=== PATIENT | female | born 1945 | race Two or more races ===

== ENCOUNTER 2021-10-06 09:00 | Outpatient (CLI) | payer OTHER | END 2021-10-06 23:59 | disposition home or self-care (01) | LOC: LAB 09:00 | PROVIDERS: ATTEND Specialist | DX: Z01.812 Encounter for preprocedural laboratory examination (principal); Z20.822 Contact with and (suspected) exposure to COVID-19 | CPT/HCPCS: C9803; U0003 ==

== ENCOUNTER 2021-10-13 07:02 | Inpatient (IN) | payer OTHER ==
[~2021-10-13] VITALS: Ht 157.5 cm; Wt 62.6 kg
[~2021-10-13 07:02] MED LIST: ANESTHESIA TRAY IN PYXIS 1 EA TRAY MC ONE; BUPIVACAINE 0.5 % PF 150 MG/30 ML VIAL ONE; POLYMYXIN B SULFATE 500,000 UNITS ONE
--- NOTE | 2021-10-13 07:15 | NUR ---
RN ADMITTING NOTES ADMITTED THIS 76 YEAR OLD FEMALE PATIENT VIA DIRECT ADMISSION. PATIENT IS FOR LEFT KNEE ARTHROPLASTY TODAY SCHEDULED. PATIENT IS ALERT AND ORIENTED X 4. ABLE TO MAKE NEEDS KNOWN. VITAL SIGNS WITHIN NORMAL LIMITS. KEPT PATIENT ON NPO. STARTED AN IV ACCESS ON PATIENT'S LEFT AC USING IV CATHETER G#20, PATENT AND FLUSHES WELL. CONSENT SECURED FOR THE PROCEDURE. NIO SKIN ISSUES IDENTIFIED. SPECIMEN FOR MRSA OBTAINED. SAFETY PRECAUTIONS IN PLACE: BED ON LOWEST LOCKED POSITION, SIDE RAILS UP X 2, CALL LIGHT WITHIN EASY RAILS. WILL CONTINUE TO MONITOR.
[2021-10-13 07:30] VITALS: BP 99/57
--- NOTE | 2021-10-13 09:00 | NUR ---
RN NOTES PATIENT WAS PICKED UP BY [facility]R STAFF. LEFT UNIT IN STABLE CONDITION.
[2021-10-13] MEDS ORDERED: PROPOFOL 20 ML IV ONE (09:11)
[2021-10-13] MEDS ORDERED: FENTANYL PF 100MCG/2ML AMPUL ONE (09:11)
[2021-10-13] MEDS ORDERED: TRANEXAMIC ACID 3,000 MG in SODIUM CHLORIDE IRRIG SOLUTION 70 ML IR ONE (09:30)
[2021-10-13] MEDS ORDERED: ONDANSETRON HCL/PF 4 MG/2 ML VIAL IV PRN (09:30)
[2021-10-13] MEDS ORDERED: MAGNESIUM HYDROXIDE 30 ML UDC PO PRN ×2 (09:30→11:30)
[2021-10-13] MEDS ORDERED: CLONIDINE HCL 0.1 MG TABLET PO PRN (09:30)
[2021-10-13] MEDS ORDERED: MAG HYDROX/AL HYDROX/SIMETH 30 ML UDC PO PRN ×2 (09:30→11:30)
[2021-10-13] MEDS ORDERED: oxyCODONE IR immediate release 5 MG PO PRN (09:30)
[2021-10-13] MEDS ORDERED: diphenhydrAMINE HCL 25 MG CAPSULE PO PRN (09:30)
[2021-10-13] MEDS ORDERED: MENTHOL/CETYLPYRD (CEPACOL) 1 LOZ LOZENGE PO PRN (09:30)
[2021-10-13] MEDS ORDERED: Z GUARD REMEDY 4 OZ OINT TP PRN (11:30)
[2021-10-13] MEDS ORDERED: ZOLPIDEM TARTRATE 5 MG TABLET PO PRN (11:30)
[2021-10-13] MEDS ORDERED: ACETAMINOPHEN 325 MG TABLET PO PRN (11:30)
[2021-10-13] MEDS ORDERED: ONDANSETRON HCL/PF 4 MG/2 ML VIAL IVP PRN (11:30)
[2021-10-13] MEDS ORDERED: IV LR 1000 ML 1,000 ML IV PRN (11:30)
--- NOTE | 2021-10-13 11:45 | NUR ---
RN NOTES RECEIVED PATIENT FROM RECOVERY ROOM VIA BED ACCOMPANIED BY CLARENCE GUAJARDO. PATIENT IS AWAKE, ALERT AND ORIENTED X 4. ABLE TO MAKE NEEDS KNOWN. VITAL SIGNS WITHIN NORMAL LIMITS. ONGOING IVF OF LRS 1 L X 100CC/HR, INFUSING WELL OVER PATIENT'S LEFT AC. NO S/SX OF INFILTRATION NOTED. WITH IMMOBILIZER ON LEFT LOWER EXTREMITY NOTES. NO COMPLAINTS OF PAIN AT THIS TIME. SAFETY PRECAUTIONS IN PLACE: BED ON LOWER LOCKED POSITION, SIDE RAILS UP X2. CALL LIGHT WITHIN EASY REACH. WILL CONTINUE TO MONITOR ACCORDINGLY.
[2021-10-13] MEDS: HYDROMORPHONE 1 MG/1 ML DISP.SYRIN IM/IV/SC PRN ×3 (12:02→21:23)
[2021-10-13] MEDS ORDERED: LEVE500T20 PO (13:58)
[2021-10-13] MEDS: DOCUSATE SODIUM 100 MG CAPSULE PO SCH (16:35)
--- NOTE | 2021-10-13 19:06 | NUR ---
RN CLOSING NOTES PATIENT IN BED, AWAKE, ALERT AND ORIENTED X 4. ABLE TO MAKE NEEDS KNOWN. VITAL SIGNS WITHIN NORMAL LIMITS. ONGOING IVF OF LRS 1 L X 100CC/HR, INFUSING WELL OVER PATIENT'S LEFT AC. NO S/SX OF INFILTRATION NOTED. WITH IMMOBILIZER ON LEFT LOWER EXTREMITY NOTES. NO COMPLAINTS OF PAIN AT THIS TIME. SAFETY PRECAUTIONS IN PLACE: BED ON LOWER LOCKED POSITION, SIDE RAILS UP X2. CALL LIGHT WITHIN EASY REACH. ENDORSED TO ONCOMING SHIFT FOR JACKELINE.
--- NOTE | 2021-10-13 19:30 | NUR ---
MS RN OPENING NOTE RECEIVED PATIENT IN BED. A/OX4. L. LEG NOTED TO BE WRAPPED ON FREDERIC WRAP AND WITH IMMOBILIZER. C/O PAIN-- WILL GIVE MEDICATION. IV LR RUNNING @100CC/HR. SAFETY IN PLACE. PATIENT ABLE TO MAKE KNOWN. WILL CONTINUE WITH PLAN OF CARE FOR PATIENT.
[2021-10-13 20:00] VITALS: BP 126/51
[2021-10-13] MEDS: FAMOTIDINE (20 MG) 20 MG TABLET PO SCH (21:24)
[2021-10-14] MEDS: HYDROMORPHONE 1 MG/1 ML DISP.SYRIN IM/IV/SC PRN ×4 (02:34→17:28)
--- NOTE | 2021-10-14 07:00 | NUR ---
RN OPENING NOTES RECEIVED PATIENT RESTING SEMI-FOWLERS IN BED. EASILY AROUSABLE, A/O X 4. VITAL SIGNS WITHIN NORMAL LIMITS. NO IV FLUIDS RUNNING AT THIS TIME DUE TO D/C OF IV INFUSION BY . L AC 20 G SALINE LOCK PATENT AND FLUSHES WELL WITH NO S/S OF INFECTION OR INFILTRATION. IMMOBILIZER ON LEFT LOWER EXTREMITY NOTED. NO COMPLAINTS OF PAIN AT THIS TIME. SAFETY PRECAUTIONS IN PLACE: BED ON LOWER LOCKED POSITION, SIDE RAILS UP X2. CALL LIGHT WITHIN EASY REACH. WILL CONTINUE TO MONITOR.
[2021-10-14 07:16] LABS: BASOPHILS % (AUTO) 0.3 % (0.0-2.0); EOSINOPHILS % (AUTO) 0.2 % (0.0-6.0); HEMATOCRIT 33 % (33-45); HEMOGLOBIN 11.1 g/dL (11.5-14.8); LYMPHOCYTES # (AUTO) 1.9 K/uL (0.8-4.8); LYMPHOCYTES % (AUTO) 19.2 % (20.0-44.0); MEAN CORPUSCULAR HGB CONC 33 g/dl (31.0-36.0); MEAN CORPUSCULAR VOLUME 96 fL (82-100); MONOCYTES # (AUTO) 1.1 K/uL (0.1-1.30); MONOCYTES % (AUTO) 11.1 % (2.0-12.0); NEUTROPHILS # (AUTO) 6.9 K/uL (1.8-8.9); NEUTROPHILS % (AUTO) 69.2 % (43.0-81.0); PLATELET COUNT (AUTO) 190 K/uL (150-450); RED BLOOD CELL COUNT(AUTO) 3.49 MIL/uL (4.0-5.2); WHITE BLOOD COUNT (AUTO) 9.9 K/uL (4.3-11.0)
[2021-10-14 07:44] LABS: CALCIUM, SERUM 8.4 mg/dL (8.5-10.1); CREATININE 0.7 mg/dL (0.6-1.3); POTASSIUM 4.5 mmol/L (3.5-5.1)
--- NOTE | 2021-10-14 07:58 | NUR ---
MS CLOSING RN NOTE REPORT GIVEN TO ZAY FOR CONTINUITY OF CARE. NO SIGNIFICANT CHANGE FROM LAST ENDORSEMENT.
[2021-10-14 08:37] VITALS: BP 129/52
[2021-10-14] MEDS: oxyCODONE IR immediate release 5 MG PO PRN (09:16)
[2021-10-14] MEDS ORDERED: LEVETIRACETAM (250 MG) 250 MG TABLET PO SCH (09:30)
[2021-10-14] MEDS: DOCUSATE SODIUM 100 MG CAPSULE PO SCH ×2 (09:32→16:25)
[2021-10-14] MEDS: FAMOTIDINE (20 MG) 20 MG TABLET PO SCH ×2 (09:32→21:35)
[2021-10-14] MEDS: ASPIRIN 325 MG TABLET PO SCH (09:32)
--- NOTE | 2021-10-14 10:24 | NUR ---
RN NOTES PT SEEN AND EVALUATED BY PHYSICAL THERAPIST MOE. PT WALKED WITH FWW WITH SBA PER MOE. PT NOW IN BED WITH CPM MACHINE ON LEFT LEG. WILL CONTINUE TO MONITOR. Addendum: 10/14/21 at 1255 by LUIS CARLOS BENITEZ RN CORRECTION: PT WALKED WITH FWW WITH CONTACT GUARD ASSIST
[2021-10-14 16:06] VITALS: BP 115/49
--- NOTE | 2021-10-14 17:28 | NUR ---
RN NOTES PATIENT IN 10/10 LEFT LEG PAIN AND REQUESTED PRESCRIBED DILAUDED IV PUSH. ADMINISTERED MEDICATION ORDERED.
--- NOTE | 2021-10-14 18:39 | NUR ---
MS RN CLOSING NOTES PATIENT IN BED, AWAKE, ALERT AND ORIENTED X 4. ABLE TO MAKE NEEDS KNOWN. VITAL SIGNS WITHIN NORMAL LIMITS. LEFT AC 20 G SALINE LOCK PATENT AND FLUSHING WELL. NO S/SX OF INFECTION OR INFILTRATION NOTED. IMMOBILIZER PRESENT ON LEFT LOWER EXTREMITY. NO COMPLAINTS OF PAIN AT THIS TIME. SAFETY PRECAUTIONS IN PLACE: BED ON LOWER LOCKED POSITION, SIDE RAILS UP X2. CALL LIGHT WITHIN EASY REACH. ENDORSED TO ONCOMING SHIFT FOR AJCKELINE.
[2021-10-14 20:00] VITALS: BP 150/65
--- NOTE | 2021-10-14 20:00 | NUR ---
RN NOTES ALERT/ORIENTED X4, STABLE ON ROOM AIR, S/P LEFT KNEE ARTHROPLASTY, PAIN MANAGED BY OXYCODONE IR, LEFT KNEE WITH FREDERIC WRAP, ICE APPLIED, BEDREST, REFUSED GETTING UP TO TOILET, REFUSED BEDPAN, PREFERS DIAPER INSTEAD. FALL PRECAUTION, KEPT SAFE, WILL CONTINUE TO MONITOR.
[2021-10-15] MEDS: oxyCODONE IR immediate release 5 MG PO PRN (03:30)
--- NOTE | 2021-10-15 06:23 | NUR ---
S/P LEFT KNEE TOTAL ARTHROPLASTY, LEFT KNEE WITH FREDERIC WRAP, DENIES NUMBNESS, WEAK PLANTARFLEXION AND DORSIFLEXION, REFUSED WALKING TO TOILET, PREFERS USING BED PAD TO VOID, CGA ASSIST, WBAT LLE, OXYCODONE IR 5-10 MG WITH ADEQUATE RELIEF, WEAN OFF DILAUDID IV, ENCOURAGE AMBULATION, FOR CASE MANAGEMENT CONSULT, WORKERS COMP.
--- NOTE | 2021-10-15 07:20 | NUR ---
RN OPENING NOTES RECEIVED PATIENT RESTING SEMI-FOWLERS IN BED. EASILY AROUSABLE, A/O X 4. VITAL SIGNS WITHIN NORMAL LIMITS. WITH IV ACCESS ON LEFT AC 20 G ON SALINE LOCK, PATENT AND FLUSHES WELL, WITH NO S/S OF INFECTION OR INFILTRATION. WITH LEFT LOWER EXTREMITY COVERED WITH ELASTIC BANDAGE RELATED TO POST ARTHROPLASTY. NO COMPLAINTS OF PAIN AT THIS TIME. SAFETY PRECAUTIONS IN PLACE: BED ON LOWER LOCKED POSITION, SIDE RAILS UP X2. CALL LIGHT WITHIN EASY REACH. WILL CONTINUE TO MONITOR.
[2021-10-15 08:34] VITALS: BP 136/65
[2021-10-15] MEDS ORDERED: LEVETIRACETAM (250 MG) 250 MG TABLET PO SCH (09:00)
[2021-10-15] MEDS: DOCUSATE SODIUM 100 MG CAPSULE PO SCH (10:04)
[2021-10-15] MEDS: ASPIRIN 325 MG TABLET PO SCH (10:04)
[2021-10-15] MEDS: FAMOTIDINE (20 MG) 20 MG TABLET PO SCH (10:04)
[2021-10-15] MEDS ORDERED: ASPI-992 PO (10:56)
[2021-10-15] MEDS: HYDROMORPHONE 1 MG/1 ML DISP.SYRIN IM/IV/SC PRN (12:58)
--- NOTE | 2021-10-15 13:00 | NUR ---
RN NOTE PATIENT DISCHARGED ORDERED. PATIENT IV REMOVED AND COVERED WITH DRY DRESSING, TOLERATED WELL. HEALTH TEACHING DONE AND VERBALIZED UNDERSTANDING. PATIENT ACCOMPANIED TO LOBBY BY NURSE VIA WHEELCHAIR. PATIENT PICKED UP BY ON A PRIVATE CAR. ENDOPRSED ACCORDINGLY.
== END 2021-10-15 13:15 | disposition home or self-care (01) | DRG 470 ==
LOC: DS 07:02 → MED 07:03
PROVIDERS: ADMIT Internal Medicine; ATTEND Internal Medicine
PROC: 0SRD0J9 Replacement of Left Knee Joint with Synthetic Substitute, Cemented, Open Approach (ICD-10-PCS; principal; 2021-10-13)
DX: M17.12 Unilateral primary osteoarthritis, left knee (principal); G40.909 Epilepsy, unspecified, not intractable, without status epilepticus
CPT/HCPCS: 36415; 80048-TC; 85025-TC; 87081-TC; 88305-TC; 88311-TC; 97110-TC; 97116-TC; 97530-TC; 97760-TC; A4217; C1713; C1776; G0378; J1100; J1170; J1885; J2370; J2405; J2704; J3010; J3490; J7030; J7120; L1830